=== PATIENT | male | born 1975 | race Caucasian/White ===

== ENCOUNTER 2025-06-19 12:44 | Outpatient (AMB) | payer BC, SELFPAY ==
--- NOTE | 2025-06-19 12:48 | A.OFFVIS_ITS ---
Vital Signs 3 06/19/25 12:59 Height 5 ft 4 in Weight 193 lb BMI 33.1 BP 136/64 Blood Pressure Location Lt brachial Position Sitting Pulse 70 Intake Visit Reasons: issue sampling/removal of a 1.2cm subcutaneous foc Intake Note: Patient is seen in office for evaluation of a lump on the left anterior abdominal wall. 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 This has been present for several years without significant change. This was recently evaluated with ultrasound of the abdomen followed by CT of the abdomen neither of which had any conclusive findings. The ultrasound revealed a 0.9 x 0.5 x 0.8 cm benign sonographic soft tissue lesion perhaps a lipoma. He denies any significant pain associated with the lesion. [facility] Surgical History Hx laparoscopic cholecystectomy Social History Alcohol intake: current Patient Tobacco Use Status: Never used Tobacco Review of Systems Const All systems reviewed & are unremarkable except as noted in HPI and below Physical Exam Vital Signs: Last Vital Signs Pulse 70 06/19/25 12:59 BP 136/64 06/19/25 12:59 BMI result Body Mass Index 33.1 Const General: cooperative and no acute distress Nutritional Appearance: well nourished Orientation/consciousness: patient oriented x3 Limitations: no limitations HEENT Head: Yes normocephalic and Yes atraumatic Ears: hearing grossly normal bilaterally Resp Effort & Inspection: normal respiratory effort, no audible wheezes, no cough and no respiratory distress GI Inspection: Yes normal to inspection Palpation (GI): Soft to palpation, nontender and no guarding Abdomen image: 2 1. Palpable mass in the left lower quadrant with a bluish discoloration suggestive of a Varix. No overlying skin changes identified. Nontender to palpation, non fluctuant. Skin Other: Warm, dry, no rash Neuro General: patient oriented x3 Extrem General: Yes no clubbing, cyanosis or edema Assessment & Plan Assessment & Plan (1) Mass of soft tissue of abdomen: Code(s): R19.00 - Intra-abdominal and pelvic swelling, mass and lump, unspecified site Category: Medical Plan 50-year-old male patient presenting with a soft tissue mass located in the left lower quadrant abdominal wall with a bluish discoloration suggestive of a overlying varix. Finding has a benign appearance as do the findings on radiology studies. I reviewed the options including observation versus excision. He wishes to avoid surgery in his comfortable watching the lesion. He is welcome to call should his symptoms change and should follow up as needed. Coding Level of Care Code New Pt Level 4 (53964) Diagnoses Mass of soft tissue of abdomen R19.00
[2025-06-19 12:59] VITALS: BP 136/64; PULSE 70; BMI 33.1
--- OUTSIDE RECORDS SUMMARY | 2025-06-19 13:57 | XMS_ITS | Clinical Summary ---
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 Role Phone Unavailable Primary Care Provider Unavailabl e Social History Tobacco Use Types Packs/Day Years Used Date Smoking Tobacco: Never Assessed Sex and Gender Information Value Date Recorded Sex Assigned at Not on file Legal Sex Male 7:19 PM EST Gender Identity Not on file Sexual Orientation Not on file Plan of Treatment Health Maintenance Due Date Last Done Comments HIV screening 01/26/1988 Hepatitis C screening 1993 Tetanus adult (Td q 10,TDAP once) 1995 Lipid disorder screening 2015 Colon cancer screening, Colonoscopy 01/26/2020 Diabetes screening 01/26/2020 06/13/2016, 06/13/2016 Covid-19 vaccine series ( - 2023-25 season) 2024 Pneumococcal Vaccine (50+ years) (1 of 1 - PCV) 2025 Shingles vaccine (Shingrix) (1 of 2 - Shingrix (RZV) 2 Dose Standard Series) 2025 Influenza vaccine 06/18/2025 RSV Immunization (1 - 1-dose 75+ series) 2050 Meningococcal Vaccine Aged Out No coreen ruth eligible based on patient's age to complete this topic Procedures Procedure Name Priority Date/Time Associated Diagnosis Comments COMPREHENSIVE METABOLIC PANEL Routine 06/13/2016 12:55 AM EDT from Last 3 Months or Most Recently Relevant to Health Maintenance Results * (ABNORMAL) Comprehensive metabolic panel (06/13/2016 12:55 AM EDT) Sodium 138 136 - 145 mmol/L [facility] Potassium 4.0 3.5 - 5.1 mmol/L [facility] Chloride 105 98 - 107 mmol/L [facility] CO2 27 21 - 32 mmol/L [facility] Glucose 113(H) 65 - 110 mg/dL [facility] Creatinine 1.11 0.70 - 1.30 mg/dL [facility] BUN 16 7 - 18 mg/dL [facility] Total Bilirubin 0.4 0.2 - 1.0 mg/dL [facility] Aspartate Aminotransferase (AST) 18 15 - 37 U/L [facility] Alanine Aminotransferase (ALT) 35 12 - 78 U/L [facility] Alkaline Phosphatase 73 45 - 117 U/L [facility] Total Protein 7.3 6.4 - 8.2 g/dL [facility] Albumin 3.8 3.4 - 5.0 g/dL [facility] Calcium 9.1 8.5 - 10.1 mg/dL [facility] Anion Gap 6 5 - 15 mmol/L [facility] eGFR >60 >60 mL/min/1. 73m2 [facility] eGFR (Afr Amer) >60 >60 mL/min/1. 73m2 [facility] Globulin 3.5 2.5 - 5.0 g/dL [facility] 06/13/2016 12:5 5 AM EDT 06/13/2016 1:15 AM EDT us Provider Not In System LAB BLOOD ORDERABLES Hiwot l Result [facility] [address] [place] [address], [facility] [phone] from Last 3 Months or Most Recently Relevant [place] [id number] BS
== END 2025-06-19 13:48 | disposition home or self-care (01) ==
LOC: HO.HGS 12:45
PROVIDERS: PCP Internal Medicine; Visit Provider Surgery
DX: R19.00 Intra-abdominal and pelvic swelling, mass and lump, unspecified site (principal)
CPT/HCPCS: 99204